=== PATIENT | female | born 2000 | race Two or more races ===

== ENCOUNTER 2022-04-20 18:23 | Emergency (ER) | payer OTHER ==
[~2022-04-20] VITALS: Ht 160 cm; Wt 122.0 kg
[2022-04-20] MEDS ORDERED: ACET-1158 PO (22:12)
[2022-04-20] MEDS ORDERED: CYCL-837 PO (22:12)
[2022-04-20 23:20] VITALS: BP 119/64
== END 2022-04-21 07:38 | disposition home or self-care (01) ==
LOC: ER 18:28
DX: S83.92XA Sprain of unspecified site of left knee, initial encounter (principal); S16.1XXA Strain of muscle, fascia and tendon at neck level, initial encounter; J45.909 Unspecified asthma, uncomplicated; Z88.1 Allergy status to other antibiotic agents; V49.59XA Passenger injured in collision with other motor vehicles in traffic accident, initial encounter; Y93.89 Activity, other specified; Y92.410 Unspecified street and highway as the place of occurrence of the external cause; Y99.8 Other external cause status
CPT/HCPCS: 73562